=== PATIENT | female | born 1970 | race Caucasian/White ===

== ENCOUNTER → 2017-04-15 | Outpatient (CLI) | payer OTHER ==
[~2017-04-15] MED LIST: FLEXERIL PO; FLOMAX0.4 MG PO; IRON159 MG; MACROBID 100 M100 M1 PO; MECLIZINE 25 MG25 M1 PO; PRENATAL; TRINATE TABLET1 TAB PO; VALIUM5 MG PO
== END ==
LOC: CAT
DX: Z13.6 Encounter for screening for cardiovascular disorders (principal)

== ENCOUNTER → 2017-07-23 | Outpatient (CLI) | payer BC, OTHER | LOC: ULTRA 01:44 → RAD 01:44 | DX: Z12.31 Encounter for screening mammogram for malignant neoplasm of breast (principal); N63.10 Unspecified lump in the right breast, unspecified quadrant; N63.20 Unspecified lump in the left breast, unspecified quadrant ==

== ENCOUNTER → 2017-11-17 | Outpatient (CLI) | payer BC, OTHER | LOC: RAD 09:45 | DX: R07.89 Other chest pain (principal); R06.02 Shortness of breath; Z88.8 Allergy status to other drugs, medicaments and biological substances ==

== ENCOUNTER → 2018-09-01 | Outpatient (CLI) | payer BC, OTHER | LOC: RAD 07-22 14:34 | DX: R92.2 Inconclusive mammogram (principal) ==

== ENCOUNTER → 2019-11-09 | Outpatient (CLI) | payer BC, OTHER | LOC: CAT 09:51 | PROVIDERS: ATTEND Nurse Practitioner | DX: R51 Headache (principal); H53.9 Unspecified visual disturbance ==